=== PATIENT | male | born 1975 | race Native Hawaiian/Other Pacific Islander ===

== ENCOUNTER 2019-05-06 16:19 | Observation (INO) | payer OTHER ==
[~2019-05-06] VITALS: Ht 185.4 cm; Wt 115.3 kg
[~2019-05-06 16:19] MED LIST: MELATONIN1 M1
[2019-05-06 16:59] VITALS: BP 165/79; TEMP 98.2; Ht 185.4 cm; Wt 115.3 kg
[2019-05-06 20:00] VITALS: BP 132/71; TEMP 98.4
[2019-05-07] VITALS: BP 148/83; TEMP 98.7
[2019-05-07 04:00] VITALS: BP 135/73; TEMP 97.3
[2019-05-07 08:00] VITALS: BP 130/69; TEMP 98
[2019-05-07 10:27] LABS: PLATELET COUNT 73 K/uL (142-355)
== END 2019-05-07 16:00 | disposition home or self-care (01) ==
LOC: MED/SURG 16:19
PROVIDERS: Family Medicine; ADMIT Emergency Medicine Emergency Medical Services
PROC: 30233N1 Transfusion of Nonautologous Red Blood Cells into Peripheral Vein, Percutaneous Approach (ICD-10-PCS; principal; 2019-05-06)
PROC: 30233N1 Transfusion of Nonautologous Red Blood Cells into Peripheral Vein, Percutaneous Approach (ICD-10-PCS; 2019-05-07)
DX: D50.8 Other iron deficiency anemias (principal); L30.8 Other specified dermatitis; B35.8 Other dermatophytoses
CPT/HCPCS: 80053; 83605; 85007; 85014; 85018; 85027; 86850; 86900; 86901; 86922; 87040; 87077; 87185; 87186; 87205; 93005; 99220; 99283; G0378; G0379; J1940; P9016

== ENCOUNTER 2019-10-06 06:22 | Emergency (ER) | payer OTHER ==
[~2019-10-06] VITALS: Ht 185.4 cm; Wt 115.2 kg
[2019-10-06 06:33] VITALS: BP 127/87; TEMP 98.5
== END 2019-10-06 07:44 | disposition home or self-care (01) ==
LOC: ED 06:22
DX: S92.002A Unspecified fracture of left calcaneus, initial encounter for closed fracture (principal); X50.1XXA Overexertion from prolonged static or awkward postures, initial encounter; Y92.89 Other specified places as the place of occurrence of the external cause
CPT/HCPCS: 99282